=== PATIENT | male | born 1960 ===

== ENCOUNTER 2016-08-26 07:37 | Emergency (ER) | payer SELFPAY ==
[2016-08-26 07:48] VITALS: BP 126/78; PULSE 80; TEMP 97; O2SAT 98; BMI 29.4
--- NOTE | 2016-08-26 08:42 | ED PDOC ---
HPI: Back Time Seen by Provider: 08/26/16 08:01 Chief Complaint (Nursing): Back Pain Chief Complaint (Provider): Back Pain History Per: Patient History/Exam Limitations: no limitations Onset/Duration Of Symptoms: Days Current Symptoms Are (Timing): Still Present Quality Of Discomfort: "Pain" Severity: Moderate Previous Symptoms: Back Pain Associated Symptoms: None Exacerbating Factor(s): Movement, Standing Additional Complaint(s): Patient is a 56 year old male who presents to ED of evaluation of back pain that started last week. Patient notes pain is lower back and initially mild but worsened 3 days ago. States pain is minimal while sitting but becomes severe upon standing. Denies radiation of pain, testicular pain, urinary changes, nausea, vomiting, abdominal pain, weakness, numbness or trauma. Of note, pain is worse in the evening, unrelieved with Tylenol at home. Reports he was recently diagnosed with arthritis to his left shoulder, unsure if he has arthritis in his spine as well. Patient also notes his allergies have been bad, relieved initially with Claritan but stopped due to improvement of symptoms. PMDL Denies Past Medical History Reviewed: Historical Data, Nursing Documentation, Vital Signs Vital Signs: Last Vital Signs Temp 97 F L 08/26/16 07:47 Pulse 80 08/26/16 07:47 Resp BP 126/78 08/26/16 07:47 Pulse Ox 98 08/26/16 07:47 - Medical History PMH: Arthritis (l shoulder), Diverticulitis, Hypercholesterolemia Denies: Chronic Kidney Disease - Surgical History Surgical History: Appendectomy - Family History Family History: States: Unknown Family Hx - Living Arrangements Living Arrangements: With Family - Immunization History Hx Influenza Vaccination: No - Home Medications Home Medications: Ambulatory Orders Medication Instructions Recorded Ciprofloxacin [Cipro] 500 mg PO BID #20 tab 07/04/15 Metronidazole 500 mg PO TID #30 tablet 07/04/15 Ciprofloxacin [Cipro] 500 mg PO BID #14 tab 12/12/15 Ibuprofen 600 mg PO Q6 PRN #20 tablet 12/12/15 Oxycodone HCl/Acetaminophen 1 tab PO Q4 PRN #10 tab 12/12/15 [Percocet 325 mg-5 mg] metroNIDAZOLE [Flagyl] 500 mg PO TID #21 tab 12/12/15 Cyclobenzaprine [Cyclobenzaprine 10 mg PO TID PRN #15 tab 08/26/16 HCl] Naproxen 500 mg PO BID #20 tab 08/26/16 - Allergies Allergies/Adverse Reactions: Allergies Allergy/AdvReac Type Severity Reaction Status Date / Time No Known Allergies Allergy Verified 07/03/15 08:01 Review of Systems ROS Statement: Except As Marked, All Systems Reviewed And Found Negative Constitutional: Negative for: Fever, Chills Cardiovascular: Negative for: Chest Pain Respiratory: Negative for: Shortness of Breath Gastrointestinal: Negative for: Abdominal Pain Genitourinary Male: Negative for: Incontinence, Scrotal Pain Musculoskeletal: Positive for: Back Pain. Negative for: Neck Pain, Leg Pain Neurological: Negative for: Weakness, Numbness Physical Exam - Reviewed Nursing Documentation Reviewed: Yes Vital Signs Reviewed: Yes - Physical Exam Appears: Positive for: Non-toxic, No Acute Distress Skin: Positive for: Normal Color, Warm Eye Exam: Positive for: Normal appearance Neck: Positive for: Normal, Painless ROM, Supple Back: Positive for: Normal Inspection. Negative for: Vertebral Tenderness, Decreased ROM, Muscle Spasm Extremity: Positive for: Normal ROM. Negative for: Pedal Edema, Calf Tenderness Neurologic/Psych: Positive for: Alert, Oriented. Negative for: Motor/Sensory Deficits - Laboratory Results Result Diagrams: 08/26/16 08:43 08/26/16 08:43 - ECG O2 Sat by Pulse Oximetry: 98 (RA) Pulse Ox Interpretation: Normal - Progress Re-evaluation Time: 10:51 Condition: Re-examined, Improved Medical Decision Making Medical Decision Making: Time: 824 Initial impression: Back pain r/o DJD, disc herniation, compression fracture Initial plan: -- CT-lumbar -- BMP -- CBC -- ESR -- Toradol IM Time: 1030 CT-lumbar results reviewed Impression: Mild anterior wedge compression deformity of the L2 vertebra, age indeterminate. No paraspinous hemorrhage. Degenerative disc disease L2-L3. Mild disc bulg at L2-3, L3-4,L4-5 and L5-S1. No focal disc disease herniation. Mild unilateral left L5-S1 neural foraminam stenosis. Small lytic lesions in bother iliac bones, non specific. The possibility of a neoplastic process must be considered. This would include metastatic disease or multiple myeloma. Recommend nonemergent evaluation with radionuclide bone scan Scribe Attestation: Documented by Francisca Haji acting as a scribe for Adri Ceron MD MD Scribe Attestation: All medical record entries made by the Scribe were at my direction and personally dictated by me. I have reviewed the chart and agree that the record accurately reflects my personal performance of the history, physical exam, medical decision making, and the department course for this patient. I have also personally directed, reviewed, and agree with the discharge instructions and disposition. Disposition - Clinical Impression Clinical Impression: Back pain - Patient ED Disposition Is Patient to be Admitted: No Doctor Will See Patient In The: Office Counseled Patient/Family Regarding: Studies Performed, Diagnosis - Disposition Referrals: [facility] [Outside] Disposition: Routine/Home Disposition Time: 10:52 Condition: GOOD Additional Instructions: Follow up with your PCP in 2-3 days to obtain MRI or bone scan. Take medications as instructed. Prescriptions: Cyclobenzaprine [Cyclobenzaprine HCl] 10 mg PO TID PRN #15 tab PRN Reason: Muscle Spasm Naproxen 500 mg PO BID #20 tab Instructions: Acute Low Back Pain (ED)
[2016-08-26 08:46] LABS: BASO # 0.1 K/uL (0.0-0.2); BASO % 1.4 % (0.0-2.0); EOS # 0.3 K/uL (0.0-0.7); EOS % 4.3 % (0.0-4.0); LYMPH # 1.6 K/uL (1.0-4.3); LYMPH % 25.7 % (20.0-40.0); MEAN CORPUSCULAR HEMOGLOBIN 29.2 pg (27.0-31.0); MEAN CORPUSCULAR HGB CONC 33.6 g/dL (33.0-37.0); MONO # 0.5 K/uL (0.0-0.8); MONO % 7.6 % (0.0-10.0); NEUT # 3.9 K/uL (1.8-7.0); NRBC % 0.2 % (0.0-0.0); RED CELL DISTRIBUTION WIDTH 13.6 % (11.5-14.5); WHITE BLOOD COUNT 6.3 K/uL (4.8-10.8)
[2016-08-26 09:02] LABS: BLOOD UREA NITROGEN 11 mg/dl (9-20); CALCIUM 9.1 mg/dL (8.4-10.2); CARBON DIOXIDE 24 mmol/L (22-30); CHLORIDE 105 mmol/L (98-107); GFR AFRICAN-AMERICAN > 60; GLUCOSE,RANDOM 100 mg/dL (75-110); POTASSIUM 4.2 MMOL/L (3.6-5.0); SODIUM 141 mmol/l (132-148)
[2016-08-26] MEDS ORDERED: Oxycodone/Acetaminophen 5/325 mg Tab PO STA (10:10)
--- NOTE | 2016-08-26 10:18 | CT ---
PROCEDURE: CT Lumbar Spine without contrast HISTORY: lower back pain COMPARISON: None. TECHNIQUE: Axial computed tomography images were obtained of the lumbar spine without the use of intravenous contrast. Coronal and sagittal reformatted images were created and reviewed. Radiation dose: Total exam DLP = 1128.68 mGy-cm. This CT exam was performed using one or more of the following dose reduction techniques: Automated exposure control, adjustment of the mA and/or kV according to patient size, and/or use of iterative reconstruction technique. FINDINGS: VERTEBRAE: Minimal anterior wedge compression deformity of the L2 vertebral body, age indeterminate. The remaining vertebral bodies are maintained in height. The transverse processes and posterior elements appear intact. DISCS/SPINAL CANAL/NEURAL FORAMINA: L1-2: Unremarkable L2-3: Mild diffuse disc bulge. Loss in height of the intervertebral disc space consistent with degenerative disc disease. Schmorl's nodes in the inferior L2 vertebral endplate. No spinal or foraminal stenosis. L3-4: Minimal diffuse disc bulge. No spinal or foraminal stenosis. L4-5: Unremarkable. L5-S1: Mild diffuse disc bulge. No focal herniation. Mild unilateral left neural foraminal stenosis. Incidentally noted is a nodular calcification within the posterior aspect of the thecal sac at the level of the superior L4 vertebral endplate. Uncertain significance. Unlikely to reflect chronic arachnoiditis. PARASPINAL SOFT TISSUES: Unremarkable. OTHER FINDINGS: Multiple small lucent circumscribed osseous lesions in both iliac bones common nonspecific. The possibility of a neoplastic process must be considered. Recommend correlation with radionuclide bone scan on a nonemergent basis. IMPRESSION: Mild anterior wedge compression deformity of the L2 vertebra, age indeterminate. No paraspinous hemorrhage. Degenerative disc disease L2-3. Mild disc bulge at L2-3, L3-4 and L5-S1. No focal disc herniation. Mild unilateral left L5-S1 neural foraminal stenosis. Small lytic lesions in both iliac bones, nonspecific. The possibility of a neoplastic process must be considered. This would include metastatic disease or multiple myeloma. Recommend nonemergent evaluation with radionuclide bone scan.
== END 2016-08-26 11:05 | disposition home or self-care (01) ==
LOC: H.ER 07:37
DX: M54.5 Low back pain (principal); E78.00 Pure hypercholesterolemia, unspecified

== ENCOUNTER 2016-12-02 06:55 | Emergency (ER) | payer OTHER ==
[2016-12-02 06:55] VITALS: BMI 29.4
[2016-12-02 07:28] VITALS: BP 149/93; PULSE 74; RESP 16; TEMP 98; O2SAT 99
--- NOTE | 2016-12-02 08:14 | ED PDOC ---
HPI: Back Time Seen by Provider: 12/02/16 07:13 Chief Complaint (Nursing): Back Pain Chief Complaint (Provider): Back Pain History Per: Patient History/Exam Limitations: no limitations Onset/Duration Of Symptoms: Days (x3) Current Symptoms Are (Timing): Still Present Additional Complaint(s): Maurice Skinner is a 56 year old male, with a past history of back problems, who reports to the emergency department complaining of back pain onset for 1 day. 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 He denies any abdominal pain, numbness or tingling, incontinence , and constipation. No weakness. No dysuria or testicular pain. PMD: None provided. Past Medical History Reviewed: Historical Data, Nursing Documentation, Vital Signs Vital Signs: Last Vital Signs Temp 98.0 F 12/02/16 07:19 Pulse 74 12/02/16 07:19 Resp 16 12/02/16 07:19 BP 149/93 H 12/02/16 07:19 Pulse Ox 99 12/02/16 07:19 - Medical History PMH: Arthritis (l shoulder), Back Problems Denies: Chronic Kidney Disease - Surgical History Surgical History: Appendectomy - Family History Family History: States: Unknown Family Hx - Social History Current smoker - smoking cessation education provided: No Alcohol: None Drugs: Denies - Immunization History Hx Influenza Vaccination: No - Home Medications Home Medications: Ambulatory Orders Medication Instructions Recorded Ciprofloxacin [Cipro] 500 mg PO BID #20 tab 07/04/15 Metronidazole 500 mg PO TID #30 tablet 07/04/15 Ciprofloxacin [Cipro] 500 mg PO BID #14 tab 12/12/15 Ibuprofen 600 mg PO Q6 PRN #20 tablet 12/12/15 Oxycodone HCl/Acetaminophen 1 tab PO Q4 PRN #10 tab 12/12/15 [Percocet 325 mg-5 mg] metroNIDAZOLE [Flagyl] 500 mg PO TID #21 tab 12/12/15 Cyclobenzaprine [Cyclobenzaprine 10 mg PO TID PRN #15 tab 08/26/16 HCl] Naproxen 500 mg PO BID #20 tab 08/26/16 Ibuprofen [Motrin] 600 mg PO TID 7 Days 12/02/16 - Allergies Allergies/Adverse Reactions: Allergies Allergy/AdvReac Type Severity Reaction Status Date / Time No Known Allergies Allergy Verified 07/03/15 08:01 Review of Systems Constitutional: Negative for: Weakness Cardiovascular: Negative for: Chest Pain Respiratory: Negative for: Shortness of Breath Gastrointestinal: Negative for: Nausea, Vomiting, Abdominal Pain, Diarrhea, Constipation Genitourinary Male: Negative for: Incontinence Musculoskeletal: Positive for: Back Pain (chronic lower) Skin: Negative for: Rash Neurological: Negative for: Weakness, Numbness, Other (tingling) Physical Exam - Reviewed Nursing Documentation Reviewed: Yes Vital Signs Reviewed: Yes - Physical Exam Appears: Positive for: Non-toxic, No Acute Distress Head Exam: Positive for: ATRAUMATIC, NORMAL INSPECTION, NORMOCEPHALIC Skin: Positive for: Normal Color, Warm, DRY Neck: Positive for: Normal, Painless ROM, Supple Cardiovascular/Chest: Positive for: Regular Rate, Rhythm Respiratory: Positive for: Normal Breath Sounds. Negative for: Respiratory Distress Gastrointestinal/Abdominal: Positive for: Normal Exam, Bowel Sounds, Soft. Negative for: Tenderness Back: Negative for: Normal Inspection (Paraspinal lower lumbar tenderness), L CVA Tenderness, R CVA Tenderness Extremity: Positive for: Normal ROM, Tenderness (Bilateral Lower extremity tenderness at 30 degrees). Negative for: Pedal Edema Neurologic/Psych: Positive for: Alert, Oriented - ECG O2 Sat by Pulse Oximetry: 99 (RA) Pulse Ox Interpretation: Normal - Radiology X-Ray: Interpreted by Me, Viewed By Me X-Ray Interpretation: No Acute Disease - Progress ED Course And Treament: 831: Stable. AAOx3. Pain free. Ambulated with no issues. Fu with pcp. Medical Decision Making Medical Decision Making: Initial Impression: Initial Plan: --Lumbar Spine Complete [RAD] --Toradol 15 mg IM --reevaluation Scribe Attestation: Documented by Parviz Mathews, acting as a scribe for Eugene Tony MD. Provider Scribe Attestation: All medical record entries made by the Scribe were at my direction and personally dictated by me. I have reviewed the chart and agree that the record accurately reflects my personal performance of the history, physical exam, medical decision making, and the department course for this patient. I have also personally directed, reviewed, and agree with the discharge instructions and disposition. Disposition - Clinical Impression Clinical Impression: Low back pain - Patient ED Disposition Is Patient to be Admitted: No Counseled Patient/Family Regarding: Studies Performed, Diagnosis, Need For Followup, Rx Given - Disposition Referrals: [facility] [Outside] - 12/03/16 Disposition: Routine/Home Disposition Time: 08:32 Condition: STABLE Additional Instructions: Return if not better in 3 days. Prescriptions: Ibuprofen [Motrin] 600 mg PO TID 7 Days Instructions: Back Pain (ED) Forms: [employer] (Citizen [place] Print Language: LEBANESE
--- NOTE | 2016-12-02 11:06 | RAD ---
PROCEDURE: Radiographs of the Lumbar Spine. HISTORY: Back pain COMPARISON: No prior. FINDINGS: BONES: There is normal alignment of lumbar vertebral bodies. Lumbar lordosis is maintained. Vertebral bodies are normal in height. There is no acute fracture, spondylolysis or spondylolisthesis. DISC SPACES: There is mild multilevel degenerative disc disease with anterior spurring, mild reduced disc heights and multilevel facet arthropathy, worse at L5-S1. OTHER FINDINGS: There are no pathologic soft tissue calcifications. IMPRESSION: 1. No acute fracture, spondylolysis or spondylolisthesis. 2. Mild multilevel degenerative disc disease, worse at L5-S1.
== END 2016-12-02 08:41 | disposition home or self-care (01) ==
LOC: H.ER 06:55
DX: M54.5 Low back pain (principal)